=== PATIENT | male | born 1985 | race Caucasian/White ===

== ENCOUNTER 2017-04-21 03:37 | Emergency (ER) | payer SELFPAY ==
--- NOTE | 2017-04-21 03:35 | EMERGENCY ROOM VISIT NOTE ---
History Report prepared by Liudmila: Aly Salinas Under the Supervision of: Dr. Dipak Stark M.D. First contact with patient: 03:34 Chief Complaint: ALCOHOL OVERDOSE Stated Complaint: DRUG AND ALCOHOL USE History of Present Illness The patient is a 21 year old male who presents to the Emergency Room via EMS with a persistent alcohol intoxication that started prior to arrival. Per police , the patient broke into someone's apartment in [facility]. The patient hit the left side of his head off of a banister, and has a resulting injury there. The patient did try to head-butt the office. History limited secondary to patient's intoxication. Source of History: police, EMS History Limited By: intoxication Onset: Prior to arrival Position: other (global - alcohol intoxication) Quality: other (broke into someone's apartment) Timing: other (persistent) Note: Associated symptoms: Tried to head-butt officer. Review of Systems Review of systems is unobtainable due to alcohol intoxication. Past Medical & Surgical Medical Problems: (1) No chronic problems Family History No pertinent family history Social History Alcohol Use: occasionally Housing Status: lives with roommate Occupation Status: [employer] student Current/Historical Medications Unable to Obtain Active Prescriptions or Reported Meds Physical Exam Vital Signs Date Time Temp Pulse Resp B/P (MAP) Pulse Ox O2 Delivery O2 Flow Rate FiO2 04/21/17 07:49 93 18 110/52 95 Room Air 04/21/17 07:00 92 10 110/52 94 04/21/17 06:00 96 18 111/63 94 Room Air 04/21/17 05:45 94 14 87/51 92 Room Air 04/21/17 05:30 100 14 88/48 94 Room Air 04/21/17 05:15 91 14 94/50 93 Room Air 04/21/17 05:00 96 14 106/48 94 Room Air 04/21/17 04:45 95 14 88/53 94 Room Air 04/21/17 04:44 97 04/21/17 04:30 99 18 97/58 91 Room Air 04/21/17 04:15 100 18 95/44 93 Room Air 04/21/17 04:00 116 22 105/47 93 Room Air 04/21/17 03:55 143 24 108/70 96 Room Air 04/21/17 03:52 145 24 94 Room Air 04/21/17 03:37 37.7 155 26 96 Room Air Physical Exam GENERAL: Patient is intoxicated. Smells of alcohol. Patient is severely combative, swinging and spitting at staff, being restrained by multiple police, EMS, and security guards. He is swearing, unable to be verbally deescalated. HEAD: Large abrasion over left side of face. EYES: Injected conjunctiva. Normal EOM. Pupils equal/reactive. ENT: Mucous membranes moist, no nasal congestion, . NECK: No step-offs, no adenopathy, no meningismus, trachea is midline. LUNGS: No dyspnea. Clear to auscultation and equal bilaterally. No wheeze, no rhonchi. HEART: Tachycardic rate and regular rhythm. No murmurs, rubs, gallops appreciated. ABDOMEN: Soft, nontender, bowel sounds positive, no masses appreciated, no peritonitis. BACK: No midline tenderness, no CVA tenderness EXTREMITIES: Normal motion all extremities, no cyanosis, no edema. NEUROLOGIC: Intoxicated. Severely combative. No obvious neuro deficits. SKIN: No rash, no jaundice, no diaphoresis. Medical Decision & Procedures ER Provider Diagnostic Interpretation: CT results are stated below per my interpretation and the radiologist's interpretation. CT HEAD: Examination is limited by motion artifact. No acute intracranial abnormality identified. Prominent mucosal thickening and fluid in the left maxillary sinus with hyperdense material in the lateral aspect which may represent blood versus proteinaceous material. Mild mucosal thickening in the right maxillary sinus. Moderate mucosal thickening in the ethmoid air cells. Mild mucosal thickening in the sphenoid sinus. Secretions noted in the nasal cavity. Evaluation of the sinus tovar and other facial bones are incompletely evaluated on this exam. If there is concern for facial trauma, consider further evaluation with CT face. Otherwise, this may all represent paranasal sinus disease. CT C SPINE: No acute traumatic abnormality identified. Scattered small lymph nodes are likely reactive. Radiologist: Yelena Lundberg M.D. Laboratory Results 04/21/17 04:10 Test 04/21/17 04:10 Anion Gap 8.0 mmol/L (3-11) Estimated GFR () 121.8 Estimated GFR (Non- 105.1 BUN/Creatinine Ratio 14.6 (10-20) Calcium Level 8.8 mg/dl (8.5-10.1) Ethyl Alcohol mg/dL 255.0 mg/dl (0-3) Laboratory results as reviewed by me. Medications Administered Medications (Trade) Dose Ordered Sig/Hugo Route Start Time Stop Time Status Last Admin Dose Admin Haloperidol Lactate (Haldol Inj) 10 mg STK-MED ONCE .ROUTE 04/21/17 03:33 04/21/17 03:34 DC 04/21/17 04:07 10 MG Lorazepam (Ativan Inj) 2 mg STK-MED ONCE .ROUTE 04/21/17 03:33 04/21/17 03:34 DC 04/21/17 04:06 2 MG Lorazepam (Ativan Inj) 2 mg NOW STAT IM 04/21/17 03:44 04/21/17 03:46 DC 04/21/17 04:07 2 MG Haloperidol Lactate (Haldol Inj) 10 mg STK-MED ONCE .ROUTE 04/21/17 03:54 04/21/17 03:55 DC 04/21/17 04:08 10 MG Dextrose/Sodium Chloride 1,000 ml @ 250 mls/hr Q4H STAT IV 04/21/17 07:16 04/21/17 11:15 04/21/17 07:42 250 MLS/HR ECG Indication: other (alcohol overdose) Rate (beats per minute): 99 Rhythm: normal sinus Findings: no acute ischemic change, no ectopy, other (QTC of 402) ED Course 0339: The patient was evaluated in room A11B. A limited history and physical exam was performed. 0344: Ordered Ativan Inj 2 mg IM. 0356: I reevaluated the patient and he remains combative and is further receiving Haldol. 0407: I reevaluated the patient and he is now asleep. His oxygen saturation is 94% on room air. 0617: I reevaluated the patient and he is sleeping soundly and in no distress. 0730: The patient was signed out to Dr. Birch. Medical Decision Differential: Alcohol Intoxication, Drug Intoxication, Electrolyte Abnormality, Trauma, Intracranial Event, Toxicological, Excited Delirium, Serotonin Syndrome , amongst other pathologies entertained. 31 yr old intoxicated male brought in by EMS after being found in wrong apartment. Brought to my attention initially by EMS calling in for medical command due to severely aggressive/combative. Given Versed 5 mg IM by EMS under my command. Still severely combative on arrival. I was unable to verbally deescalate nor re-direct the patient. The patient's combative behavior was risking a catastrophe. To protect the staff and the patient from harm it was necessary to chemically and physically restrain the patient. The patient was given a total of 4 Ativan, 20 Haldol, 5 Versed over several doses prior to calming. After sedate he was taken to CT due to head injury in intoxication. CT head/neck without obvious injury other than blood in sinus. No clear deformity on face other than abrasion. Still heavily obtunded though protecting airway. Will sign out to Dr Birch awaiting awakening/sobering. Stable at time of sign out. Medication Reconcilliation Current Medication List: was personally reviewed by me None on list. Blood Pressure Screening Patient's blood pressure: Normal blood pressure Impression Primary Impression: Alcohol abuse Additional Impressions: Alcohol use with intoxication Combative behavior Aggressive behavior Contusion of face Scribe Attestation The scribe's documentation has been prepared under my direction and personally reviewed by me in its entirety. I confirm that the note above accurately reflects all work, treatment, procedures, and medical decision making performed by me. Departure Information Dispostion Still a Patient (signed out to Dr. Birch) Prescriptions Unable to Obtain Active Prescriptions or Reported Meds Patient Instructions My [facility] Additional Instructions You were evaluated in emergency department for intoxication. This is a sign of Alcohol Abuse and should not be taken lightly. You had a blood alcohol level that was significantly elevated. You were severely combative with staff and had to be physically and chemically restrained to protect you and the staff of the Emergency Department. The medications given to you can sometimes cause side effects of muscle stiffness and twitching the next day. If you have concerns please return to Emergency Department for further evaluation. Over the next 24 hours keep well hydrated and eat light meals. Don't drink any more alcohol. This is important. Please discuss this visit with your Primary Care Provider, [facility] and/or your loved ones. Unless an exceptional circumstance, the Hospital DOES NOT contact anyone DURING your visit, nor is your Protected Medical Information released to anyone without your approval/request. This means we do not contact your Parents, the Police, etc. However, you will likely receive a bill from the Hospital and/or your Insurance company, which will usually be sent to the Primary Policy Snowden (often one's Parents). Furthermore, as a student, your visit report will likely be sent to [facility] as your primary care provider, unless other Provider listed. If your incident was on campus, or if the Police were involved, they will often contact the University to make them aware of what happened. Often this will result in you being required to take Alcohol Education classes (ie BASICS class) . Please see information given to you at discharge regarding contact for this. If the Police were involved you will likely be cited for public intoxication. Please contact either [facility] Police or the [place] Police for further information. Call 911 or return to Emergency Department if you develop: Passing out, difficulty breathing, many episodes of vomiting, blood in vomit or stool, abdominal pain, fevers, or other severe symptoms. We are always here to help if you feel you need further evaluation or treatment. Problem Qualifiers
[2017-04-21 03:37] VITALS: TEMP 37.7
[~2017-04-21 03:37] MED LIST: HALOPERIDOL LACTATE 5 MG/ML 1 ML VIAL ONE; LORAZEPAM 2 MG/ML 1 ML VIAL ONE
[2017-04-21] MEDS ORDERED: LORAZEPAM 2 MG/ML 1 ML VIAL IM STA (03:44)
[2017-04-21] MEDS ORDERED: HALOPERIDOL LACTATE 5 MG/ML 1 ML VIAL ONE (03:54)
[2017-04-21 04:55] LABS: BLOOD UREA NITROGEN 14 mg/dl (7-18); BUN/CREATININE RATIO 14.6 (10-20); CALCIUM 8.8 mg/dl (8.5-10.1); CARBON DIOXIDE 24 mmol/L (21-32); CHLORIDE 110 mmol/L (98-107); CREATININE 0.97 mg/dl (0.60-1.40); GLUCOSE 100 mg/dl (70-99); POTASSIUM 3.6 mmol/L (3.5-5.1); SODIUM 142 mmol/L (136-145)
[2017-04-21] MEDS ORDERED: D5W AND NSS 1,000 ML IV STA (07:16)
--- NOTE | 2017-04-21 07:33 | DIAGNOSTIC IMAGING REPORT ---
CERVICAL SPINE W/O, HEAD WITHOUT CONTRAST (CT) CLINICAL HISTORY: 31 years-old Male presenting with head injury, intoxication. TECHNIQUE: Multidetector CT of the head and cervical spine were performed without the use of intravenous contrast. IV contrast: None. A dose lowering technique was used consistent with the principles of ALARA (as low as reasonably achievable). COMPARISON: None. CT DOSE (mGy.cm): The estimated cumulative dose is 1061.50 mGy.cm. FINDINGS: Farm Service Consultant topogram: Unremarkable. CT head: Ventricles and sulci normal in size. Brain parenchyma normal in appearance with preserved da silva-white differentiation. No mass effect or midline shift. No hemorrhage or acute territorial infarct. No extra-axial fluid collection. Aerated secretions noted in the left maxillary sinus with focal hyperdensity (series 2 image 1). Mild mucosal thickening in the right maxillary sinus. Aerated secretions in the nasopharynx with partial opacification of the ethmoid air cells. Calvarium intact. CT cervical spine: Normal cervical lordosis. Vertebral bodies maintain normal height and alignment. Intervertebral disc spaces maintained. No degenerative change. No osseous neural foraminal or spinal canal narrowing. No acute fracture or subluxation. Regional soft tissues demonstrate bilateral subcentimeter prominent lymph nodes, likely reactive. Lung apices clear. IMPRESSION: 1. No acute intracranial pathology. 2. Aerated secretions in the left maxillary sinus and nasopharynx with additional mucosal thickening in the right maxillary sinus and ethmoid air cells. Focal hyperdensity in the left maxillary sinus raises concern for hematoma. If there is concern for facial trauma, dedicated CT face should be obtained. Alternatively, this could indicate acute sinusitis with inspissated secretions. 3. No acute osseous injury of the cervical spine. Electronically signed by: Antonio Britton M.D. 04/21/2017 7:32 AM Dictated Date/Time: 04/21/2017 7:26 AM
[2017-04-21 12:17] VITALS: BP 104/52; PULSE 95; O2SAT 99
== END 2017-04-21 12:40 | disposition home or self-care (01) ==
LOC: EDBD 03:37 → C.EDA 03:43
DX: F10.129 Alcohol abuse with intoxication, unspecified (principal); F91.8 Other conduct disorders; S00.83XA Contusion of other part of head, initial encounter; W22.8XXA Striking against or struck by other objects, initial encounter; Y92.89 Other specified places as the place of occurrence of the external cause; Z78.1 Physical restraint status

== ENCOUNTER 2017-07-07 01:54 | Emergency (ER) | payer OTHER ==
[2017-07-07 01:54] VITALS: TEMP 37.1
[2017-07-07 02:00] VITALS: O2SAT 95
--- NOTE | 2017-07-07 02:10 | EMERGENCY ROOM VISIT NOTE ---
History Report prepared by Scribe: Asia Garrett Under the Supervision of: Dr. Leroy Gonzalez D.O. First contact with patient: 02:01 Chief Complaint: ALCOHOL OVERDOSE Stated Complaint: ALCOHOL OVERDOSE History of Present Illness The patient is a 32 year old male who presents to the Emergency Room with complaints of an alcohol overdose. He was brought to the ED via EMS. Per Police , they were called to the [facility] block of [facility] for an unconscious person. Upon PD arrival, the patient was combative and ran from police. He was handcuffed and placed in an ambulance where his behavior escalated. EMS called for medical command and the patient was given 240 mg IM Ketamine. The patient vomited and was given 4 mg IV Zofran. Additional information is unable to be obtained secondary to the patients current sedation. There are no signs of trauma on the patient. Source of History: EMS, nursing staff History Limited By: intoxication Onset: TELEPHONY ENGINEER Position: other (global) Quality: other (alcohol intoxication) Timing: constant Associated Symptoms: + vomiting Review of Systems See HPI for pertinent positives and negatives. A limited number of systems were reviewed and were otherwise negative. Past Medical & Surgical Medical Problems: (1) No chronic problems Family History No pertinent family history Social History Smoking Status: Unknown if Ever Smoked Alcohol Use: occasionally, heavy Drug Use: none Marital Status: single Housing Status: lives with roommate Occupation Status: [employer] student Current/Historical Medications Unable to Obtain Active Prescriptions or Reported Meds Physical Exam Vital Signs Date Time Temp Pulse Resp B/P (MAP) Pulse Ox O2 Delivery O2 Flow Rate FiO2 07/07/17 04:35 77 17 97 07/07/17 04:30 112/62 07/07/17 04:05 79 18 96 07/07/17 04:00 107/58 07/07/17 03:35 97 13 100 07/07/17 03:30 103/75 07/07/17 03:24 82 15 95 07/07/17 03:00 123/64 07/07/17 02:54 92 13 100 07/07/17 02:30 100/61 07/07/17 02:24 84 17 93 07/07/17 02:01 119 07/07/17 02:00 139/89 07/07/17 02:00 95 Room Air 07/07/17 01:54 37.1 88 17 139/89 94 Room Air Physical Exam GENERAL: Patient is sleeping, resting comfortably, no signs of trauma HENT: Normocephalic, atraumatic. Oropharynx unremarkable. EYES: Normal conjunctiva. Sclera non-icteric. NECK: Supple. No nuchal rigidity. FROM. No JVD. RESPIRATORY: Clear to auscultation. CARDIAC: Regular rate, normal rhythm. Extremities warm and well perfused. Pulses equal. ABDOMEN: Soft, non-distended. No tenderness to palpation. No rebound or guarding. No masses. RECTAL: Deferred. MUSCULOSKELETAL: No signs of trauma. Chest examination reveals no tenderness. The back is symmetrical on inspection without obvious abnormality. There is no CVA tenderness to palpation. No joint edema. LOWER EXTREMITIES: Calves are equal size bilaterally and non-tender. No edema. No discoloration. NEURO: Normal sensorium. No sensory or motor deficits noted. SKIN: No rash or jaundice noted. Medical Decision & Procedures Laboratory Results 07/07/17 02:03 Test 07/07/17 02:03 Anion Gap 11.0 mmol/L (3-11) Estimated GFR () 125.6 Estimated GFR (Non- 108.4 BUN/Creatinine Ratio 14.5 (10-20) Calcium Level 8.6 mg/dl (8.5-10.1) Ethyl Alcohol mg/dL 241.0 mg/dl (0-3) Laboratory results reviewed by ne ED Course 0205: The patient was evaluated in room B4. A complete history and physical exam was performed. 0515: I reevaluated the patient. He is resting comfortably. I discussed his discharge instructions and he verbalized complete understanding and agreement. Medical Decision The differential diagnoses considered include alcohol intoxication, toxicologic , infection, hypoglycemia, electrolyte abnormalities, cardiac sources, intracerebral event, neurologic, as well as others were entertained. Patient resting in no distress throughout emergency department evaluation. Patient was given ketamine by EMS prior arrival for agitation. Patient will be observed until he has a sober ride and his mental status has returned to baseline Medication Reconcilliation Current Medication List: was personally reviewed by me Blood Pressure Screening Patient's blood pressure: Normal blood pressure Blood pressure disposition: Did not require urgent referral Impression Primary Impression: Alcohol intoxication Scribe Attestation The scribe's documentation has been prepared under my direction and personally reviewed by me in its entirety. I confirm that the note above accurately reflects all work, treatment, procedures, and medical decision making performed by me. Departure Information Dispostion Home / Self-Care Prescriptions Unable to Obtain Active Prescriptions or Reported Meds Referrals No Doctor, Assigned (PCP) Patient Instructions Alcohol Abuse - [facility], My [facility] Additional Instructions Follow-up primary care physician, avoid alcohol, return for any concerns
[2017-07-07 02:27] LABS: BLOOD UREA NITROGEN 14 mg/dl (7-18); BUN/CREATININE RATIO 14.5 (10-20); CALCIUM 8.6 mg/dl (8.5-10.1); CARBON DIOXIDE 22 mmol/L (21-32); CHLORIDE 106 mmol/L (98-107); CREATININE 0.94 mg/dl (0.60-1.40); GLUCOSE 103 mg/dl (70-99); POTASSIUM 3.3 mmol/L (3.5-5.1); SODIUM 139 mmol/L (136-145)
[2017-07-07 05:38] VITALS: BP 150/61; PULSE 112; O2SAT 97
== END 2017-07-07 06:08 | disposition home or self-care (01) ==
LOC: EDBD 01:54 → C.EDB 01:57 → EDBD 01:57 → C.EDB 06:08
DX: F10.129 Alcohol abuse with intoxication, unspecified (principal); R11.10 Vomiting, unspecified